=== PATIENT | female | born 1950 | race Caucasian/White ===

== ENCOUNTER 2022-08-18 10:29 | Day surgery (SDC) | payer MEDICARE ==
[2022-08-16 15:07] VITALS: BMI 28.3
[2022-08-18] MEDS ORDERED: Bupivacaine HCl 0.5%/Epinephrine 1:200,000/PF 30 ml Vial ONE (12:14)
[2022-08-18] MEDS ORDERED: Lidocaine 2% PF 5 ML VIAL ONE (12:14)
[2022-08-18] MEDS ORDERED: Sodium Chloride 0.9% 100 ML ONE (12:27)
[2022-08-18] MEDS ORDERED: CEFAZOLIN 1 GM VIAL ONE (12:27)
[2022-08-18] MEDS ORDERED: PROPOFOL 200 MG/20 ML VIAL ONE (12:44)
[2022-08-18] MEDS ORDERED: Lidocaine 1% PF 5 ML VIAL ONE (12:44)
[2022-08-18] MEDS ORDERED: HYDROcodone/Acetaminophen 5/325 mg Tablet ONE (14:16)
== END 2022-08-18 15:05 | disposition home or self-care (01) ==
LOC: SDC 10:29
PROVIDERS: ATTEND Anesthesiology Pain Medicine
PROC: 0JPT0MZ Removal of Stimulator Generator from Trunk Subcutaneous Tissue and Fascia, Open Approach (ICD-10-PCS; principal; 2022-08-18)
PROC: 0JH70DZ Insertion of Multiple Array Stimulator Generator into Back Subcutaneous Tissue and Fascia, Open Approach (ICD-10-PCS; 2022-08-18)
DX: Z45.42 Encounter for adjustment and management of neurostimulator (principal); G90.521 Complex regional pain syndrome I of right lower limb; G89.4 Chronic pain syndrome; I10 Essential (primary) hypertension; E03.9 Hypothyroidism, unspecified; K21.9 Gastro-esophageal reflux disease without esophagitis; M54.9 Dorsalgia, unspecified; Z79.890 Hormone replacement therapy; Z79.899 Other long term (current) drug therapy; Z88.0 Allergy status to penicillin; Z88.1 Allergy status to other antibiotic agents; Z88.2 Allergy status to sulfonamides; Z88.7 Allergy status to serum and vaccine; Z88.8 Allergy status to other drugs, medicaments and biological substances; Z91.018 Allergy to other foods; Z91.048 Other nonmedicinal substance allergy status
CPT/HCPCS: 93005; 93010; C1820; J0690; J2001; J2704; J3490